=== PATIENT | female | born 2000 | race Caucasian/White ===

== ENCOUNTER → 2019-11-01 17:21 | Outpatient (BNVA) | payer BC, SELFPAY | PROVIDERS: Family Provider Nurse Practitioner Family; PCP Nurse Practitioner Family; Visit Provider Nurse Practitioner Family | DX: E03.9 Hypothyroidism, unspecified (principal); F41.9 Anxiety disorder, unspecified; F32.9 Major depressive disorder, single episode, unspecified | CPT/HCPCS: 80053; 84443; 85025 ==

== ENCOUNTER → 2019-12-30 15:05 | Outpatient (BNVA) | payer BC, SELFPAY | PROVIDERS: Family Provider Nurse Practitioner Family; PCP Nurse Practitioner Family; Visit Provider Nurse Practitioner Family | DX: Z30.09 Encounter for other general counseling and advice on contraception (principal); L30.9 Dermatitis, unspecified; N91.2 Amenorrhea, unspecified | CPT/HCPCS: 81025 ==

== ENCOUNTER → 2020-07-25 11:55 | Outpatient (BNVA) | payer BC, SELFPAY | PROVIDERS: Family Provider Nurse Practitioner Family; PCP Nurse Practitioner Family; Visit Provider Nurse Practitioner Family | DX: E03.9 Hypothyroidism, unspecified (principal); F32.9 Major depressive disorder, single episode, unspecified; F41.9 Anxiety disorder, unspecified; Z68.23 Body mass index [BMI] 23.0-23.9, adult; Z77.22 Contact with and (suspected) exposure to environmental tobacco smoke (acute) (chronic) | CPT/HCPCS: 80053; 84443; 85025 ==

== ENCOUNTER → 2021-03-07 15:33 | Outpatient (BNVA) | payer BC, SELFPAY | PROVIDERS: Family Provider Nurse Practitioner Family; PCP Nurse Practitioner Family; Visit Provider Nurse Practitioner Family | DX: R53.83 Other fatigue (principal); E03.9 Hypothyroidism, unspecified; R04.0 Epistaxis; F41.9 Anxiety disorder, unspecified; F32.9 Major depressive disorder, single episode, unspecified; Z77.22 Contact with and (suspected) exposure to environmental tobacco smoke (acute) (chronic) | CPT/HCPCS: 80053; 81025; 82306; 82607; 84439; 84443; 85025 ==

== ENCOUNTER → 2021-05-29 12:02 | Outpatient (BNVA) | payer BC, SELFPAY | PROVIDERS: Family Provider Nurse Practitioner Family; PCP Nurse Practitioner Family; Visit Provider Nurse Practitioner Family | DX: E55.9 Vitamin D deficiency, unspecified (principal); U07.1 COVID-19; F41.9 Anxiety disorder, unspecified; F32.9 Major depressive disorder, single episode, unspecified | CPT/HCPCS: 82306 ==

== ENCOUNTER → 2022-02-25 17:26 | Outpatient (BNVA) | payer BC, SELFPAY | PROVIDERS: Family Provider Nurse Practitioner Family; PCP Nurse Practitioner Family; Visit Provider Family Medicine | DX: E03.9 Hypothyroidism, unspecified (principal); E55.9 Vitamin D deficiency, unspecified; F32.9 Major depressive disorder, single episode, unspecified; F41.9 Anxiety disorder, unspecified | CPT/HCPCS: 80053; 80061; 82306; 84443; 85025 ==

== ENCOUNTER → 2022-04-25 12:14 | Outpatient (BNVA) | payer BC, SELFPAY | PROVIDERS: Family Provider Nurse Practitioner Family; PCP Nurse Practitioner Family; Visit Provider Nurse Practitioner Family | DX: M25.50 Pain in unspecified joint (principal); R04.0 Epistaxis | CPT/HCPCS: 80053; 81241; 84155; 84165; 85025; 85210; 85230; 85240; 85246; 85260 ==

== ENCOUNTER → 2022-11-06 09:39 | Outpatient (BNVA) | payer BC, SELFPAY | PROVIDERS: Family Provider Nurse Practitioner Family; PCP Nurse Practitioner Family; Visit Provider Nurse Practitioner Women's Health | DX: N92.6 Irregular menstruation, unspecified (principal); Z12.4 Encounter for screening for malignant neoplasm of cervix | CPT/HCPCS: 82306; 83036; 84146; 84402; 84702; 88175 ==

== ENCOUNTER → 2022-12-31 10:38 | Outpatient (BNVA) | payer BC, SELFPAY | PROVIDERS: Family Provider Nurse Practitioner Family; PCP Nurse Practitioner Family; Visit Provider Nurse Practitioner Women's Health | DX: E03.9 Hypothyroidism, unspecified (principal); E55.9 Vitamin D deficiency, unspecified; N92.6 Irregular menstruation, unspecified; Z11.3 Encounter for screening for infections with a predominantly sexual mode of transmission | CPT/HCPCS: 82306; 84443 ==

== ENCOUNTER → 2023-01-08 12:07 | Outpatient (BNVA) | payer BC, SELFPAY | PROVIDERS: Family Provider Nurse Practitioner Family; PCP Nurse Practitioner Family; Visit Provider Nurse Practitioner Women's Health | DX: N97.9 Female infertility, unspecified (principal); N83.201 Unspecified ovarian cyst, right side; N85.8 Other specified noninflammatory disorders of uterus | CPT/HCPCS: 76830 ==

== ENCOUNTER → 2023-09-15 08:02 | Outpatient (BNVA) | payer BC, SELFPAY | PROVIDERS: Family Provider Nurse Practitioner Family; PCP Nurse Practitioner Family; Visit Provider Nurse Practitioner Women's Health | DX: N92.6 Irregular menstruation, unspecified (principal) | CPT/HCPCS: 81025; 84702; 86850; 86900 ==

== ENCOUNTER → 2023-09-30 10:11 | Outpatient (BNVA) | payer BC, SELFPAY | PROVIDERS: Family Provider Nurse Practitioner Family; PCP Nurse Practitioner Family; Visit Provider Nurse Practitioner Women's Health | DX: Z34.80 Encounter for supervision of other normal pregnancy, unspecified trimester (principal) | CPT/HCPCS: 76801 ==

== ENCOUNTER → 2023-10-14 09:48 | Outpatient (BNVA) | payer BC, SELFPAY | PROVIDERS: Family Provider Nurse Practitioner Family; PCP Nurse Practitioner Family; Visit Provider Nurse Practitioner Women's Health | DX: Z34.90 Encounter for supervision of normal pregnancy, unspecified, unspecified trimester (principal); Z3A.10 10 weeks gestation of pregnancy; E03.9 Hypothyroidism, unspecified | CPT/HCPCS: 80307; 84315; 84439; 84443; 84481; 85025; 86592; 86762; 86803; 86850; 86900; 87086; 87340; 87491; 87591; 87806 ==

== ENCOUNTER → 2023-11-25 07:58 | Outpatient (BNVA) | payer BC, SELFPAY | PROVIDERS: Family Provider Nurse Practitioner Family; PCP Nurse Practitioner Family; Visit Provider Nurse Practitioner Women's Health | DX: Z34.90 Encounter for supervision of normal pregnancy, unspecified, unspecified trimester (principal); Z3A.00 Weeks of gestation of pregnancy not specified | CPT/HCPCS: 82105; 84315 ==

== ENCOUNTER → 2023-12-22 09:10 | Outpatient (BNVA) | payer BC, SELFPAY | PROVIDERS: Family Provider Nurse Practitioner Family; PCP Nurse Practitioner Family; Visit Provider Obstetrics & Gynecology | DX: Z34.92 Encounter for supervision of normal pregnancy, unspecified, second trimester (principal); Z3A.20 20 weeks gestation of pregnancy | CPT/HCPCS: 76805 ==

== ENCOUNTER → 2024-01-19 13:33 | Outpatient (BNVA) | payer BC, SELFPAY | PROVIDERS: Family Provider Nurse Practitioner Family; PCP Nurse Practitioner Family; Visit Provider Nurse Practitioner Women's Health | DX: Z34.90 Encounter for supervision of normal pregnancy, unspecified, unspecified trimester (principal); Z3A.10 10 weeks gestation of pregnancy | CPT/HCPCS: 84315; 84443; 85025 ==

== ENCOUNTER → 2024-02-16 13:06 | Outpatient (BNVA) | payer BC, SELFPAY | PROVIDERS: Family Provider Nurse Practitioner Family; PCP Nurse Practitioner Family; Visit Provider Obstetrics & Gynecology | DX: Z34.90 Encounter for supervision of normal pregnancy, unspecified, unspecified trimester (principal); Z3A.10 10 weeks gestation of pregnancy | CPT/HCPCS: 82950; 84315 ==

== ENCOUNTER → 2024-02-26 16:49 | Outpatient (BNVA) | payer BC, SELFPAY | PROVIDERS: Family Provider Nurse Practitioner Family; PCP Nurse Practitioner Family; Visit Provider Obstetrics & Gynecology | DX: Z3A.10 10 weeks gestation of pregnancy (principal) | CPT/HCPCS: 82951; 82952 ==

== ENCOUNTER → 2024-03-02 08:39 | Outpatient (BNVA) | payer BC, SELFPAY | PROVIDERS: Family Provider Nurse Practitioner Family; PCP Nurse Practitioner Family; Visit Provider Obstetrics & Gynecology | DX: Z34.90 Encounter for supervision of normal pregnancy, unspecified, unspecified trimester (principal); Z3A.30 30 weeks gestation of pregnancy | CPT/HCPCS: 76816; 84315 ==

== ENCOUNTER → 2024-03-18 09:45 | Outpatient (BNVA) | payer SELFPAY | PROVIDERS: Family Provider Nurse Practitioner Family; PCP Nurse Practitioner Family; Visit Provider Nurse Practitioner Women's Health | DX: Z34.00 Encounter for supervision of normal first pregnancy, unspecified trimester (principal); Z3A.10 10 weeks gestation of pregnancy; Z34.90 Encounter for supervision of normal pregnancy, unspecified, unspecified trimester | CPT/HCPCS: 82950; 84315; 84443; 85025 ==

== ENCOUNTER 2024-03-22 09:27 | Outpatient (CLI) | payer SELFPAY ==
[2024-03-22 09:36] VITALS: BP 113/67; PULSE 90
[2024-03-22 10:07] VITALS: BMI 26.8
--- NOTE | 2024-03-22 10:10 | PC.NURSE ---
THIS RN PROVIDED EDUCATED PATIENT ON IMPORTANCE OFF DRINKING PLENTY OF FLUIDS TO MAINTAIN HYDRATION.
[2024-03-22 10:20] VITALS: BP 113/67; PULSE 90; O2SAT 100
== END 2024-03-22 10:21 | disposition home or self-care (01) ==
LOC: OPOB 09:28 → OBGYN 09:30
PROVIDERS: Family Provider Nurse Practitioner Family; PCP Nurse Practitioner Family; Visit Provider Obstetrics & Gynecology
DX: O24.419 Gestational diabetes mellitus in pregnancy, unspecified control (principal); Z3A.00 Weeks of gestation of pregnancy not specified
CPT/HCPCS: 59025; 81000; 83986; 99211

== ENCOUNTER 2024-03-25 10:31 | Outpatient (CLI) | payer SELFPAY ==
[2024-03-25 10:33] VITALS: BP 129/70; PULSE 74
[2024-03-25 10:37] VITALS: RESP 18; TEMP 36.6; BMI 26.5
[2024-03-25 10:48] VITALS: BP 110/61; PULSE 72
== END 2024-03-25 11:05 | disposition home or self-care (01) ==
LOC: OPOB 10:32 → OBGYN 10:32
PROVIDERS: Family Provider Nurse Practitioner Family; PCP Nurse Practitioner Family; Visit Provider Obstetrics & Gynecology
DX: O24.419 Gestational diabetes mellitus in pregnancy, unspecified control (principal); Z3A.00 Weeks of gestation of pregnancy not specified
CPT/HCPCS: 59025; 99211

== ENCOUNTER 2024-03-29 09:35 | Outpatient (CLI) | payer SELFPAY ==
[2024-03-29 09:41] VITALS: BP 110/69; PULSE 90
[2024-03-29 09:48] VITALS: BMI 26.6
[2024-03-29 09:56] VITALS: BP 116/72; PULSE 81
[2024-03-29 10:11] VITALS: BP 115/73; PULSE 81
== END 2024-03-29 10:15 ==
LOC: OPOB 09:37 → OBGYN 09:37
PROVIDERS: Family Provider Nurse Practitioner Family; PCP Nurse Practitioner Family; Visit Provider Obstetrics & Gynecology
DX: O24.419 Gestational diabetes mellitus in pregnancy, unspecified control (principal); Z3A.00 Weeks of gestation of pregnancy not specified
CPT/HCPCS: 59025

== ENCOUNTER 2024-03-31 09:05 | Outpatient (CLI) | payer SELFPAY ==
[2024-03-31 09:05] VITALS: BMI 27.5
[2024-03-31 09:10] VITALS: BP 120/67; PULSE 69
[2024-03-31 09:26] VITALS: BP 120/73; PULSE 68
== END 2024-03-31 09:42 | disposition home or self-care (01) ==
LOC: OPOB 09:05 → OBGYN 09:06
PROVIDERS: Family Provider Nurse Practitioner Family; PCP Nurse Practitioner Family; Visit Provider Obstetrics & Gynecology
DX: O24.419 Gestational diabetes mellitus in pregnancy, unspecified control (principal); Z3A.00 Weeks of gestation of pregnancy not specified
CPT/HCPCS: 59025; 84315

== ENCOUNTER 2024-04-05 10:00 | Outpatient (CLI) | payer SELFPAY ==
[2024-04-05 10:04] VITALS: BP 127/65; PULSE 99
[2024-04-05 10:15] VITALS: RESP 18; BMI 28.5
[2024-04-05 10:18] VITALS: BP 125/70; PULSE 84
== END 2024-04-05 10:26 | disposition home or self-care (01) ==
LOC: OPOB 10:00 → OBGYN 10:01
PROVIDERS: Family Provider Nurse Practitioner Family; PCP Nurse Practitioner Family; Visit Provider Obstetrics & Gynecology
DX: O24.419 Gestational diabetes mellitus in pregnancy, unspecified control (principal); Z3A.00 Weeks of gestation of pregnancy not specified
CPT/HCPCS: 59025

== ENCOUNTER 2024-04-07 09:37 | Outpatient (CLI) | payer SELFPAY ==
[2024-04-07 09:45] VITALS: BMI 27.8
[2024-04-07 09:50] VITALS: BP 109/66; PULSE 90; TEMP 36.3
[2024-04-07 10:10] VITALS: BP 107/71; PULSE 82
== END 2024-04-07 10:25 ==
LOC: OPOB 09:38 → OBGYN 09:39
PROVIDERS: Family Provider Nurse Practitioner Family; PCP Nurse Practitioner Family; Visit Provider Obstetrics & Gynecology
DX: O24.419 Gestational diabetes mellitus in pregnancy, unspecified control (principal); Z3A.00 Weeks of gestation of pregnancy not specified
CPT/HCPCS: 59025

== ENCOUNTER 2024-04-12 09:16 | Outpatient (CLI) | payer SELFPAY ==
[2024-04-12 09:15] VITALS: BMI 28.5
[2024-04-12 09:25] VITALS: BP 116/77; PULSE 90
[2024-04-12 09:45] VITALS: BP 119/72; PULSE 76
== END 2024-04-12 09:50 | disposition home or self-care (01) ==
LOC: OPOB 09:16 → OBGYN 09:17
PROVIDERS: Family Provider Nurse Practitioner Family; PCP Nurse Practitioner Family; Visit Provider Obstetrics & Gynecology
DX: O24.419 Gestational diabetes mellitus in pregnancy, unspecified control (principal); Z3A.00 Weeks of gestation of pregnancy not specified
CPT/HCPCS: 59025

== ENCOUNTER 2024-04-14 09:10 | Outpatient (CLI) | payer SELFPAY ==
[2024-04-14 09:18] VITALS: BP 116/68; PULSE 75
[2024-04-14 09:30] VITALS: BMI 28.6
[2024-04-14 09:33] VITALS: BP 120/69; PULSE 83
== END 2024-04-14 09:45 | disposition home or self-care (01) ==
LOC: OPOB 09:14 → OBGYN 09:14
PROVIDERS: Family Provider Nurse Practitioner Family; PCP Nurse Practitioner Family; Visit Provider Obstetrics & Gynecology
DX: O24.419 Gestational diabetes mellitus in pregnancy, unspecified control (principal); Z3A.00 Weeks of gestation of pregnancy not specified
CPT/HCPCS: 59025; 76816; 81000; 87081; 99211

== ENCOUNTER 2024-04-20 11:30 | Outpatient (CLI) | payer OTHER, SELFPAY ==
[2024-04-20 11:35] VITALS: BP 122/76; PULSE 73
[2024-04-20 11:41] VITALS: BMI 27.9
== END 2024-04-20 12:00 | disposition home or self-care (01) ==
LOC: OPOB 11:30 → OBGYN 11:31
PROVIDERS: Family Provider Nurse Practitioner Family; PCP Nurse Practitioner Family; Visit Provider Obstetrics & Gynecology
DX: O24.419 Gestational diabetes mellitus in pregnancy, unspecified control (principal); Z3A.00 Weeks of gestation of pregnancy not specified
CPT/HCPCS: 59025; 81000

== ENCOUNTER 2024-04-22 13:33 | Outpatient (CLI) | payer OTHER, SELFPAY ==
[2024-04-22 13:44] VITALS: BP 116/75; PULSE 83
[2024-04-22 13:48] VITALS: BMI 27.4
== END 2024-04-22 14:06 ==
LOC: OPOB 13:33 → OBGYN 13:38
PROVIDERS: Family Provider Nurse Practitioner Family; PCP Nurse Practitioner Family; Visit Provider Obstetrics & Gynecology
DX: O26.899 Other specified pregnancy related conditions, unspecified trimester (principal); Z3A.00 Weeks of gestation of pregnancy not specified
CPT/HCPCS: 59025; 99211

== ENCOUNTER 2024-04-26 08:41 | Outpatient (CLI) | payer OTHER, SELFPAY ==
[2024-04-26 08:45] VITALS: BP 122/73; PULSE 113
[2024-04-26 08:47] VITALS: BMI 27.6
[2024-04-26 09:00] VITALS: BP 116/74; PULSE 77
== END 2024-04-26 09:15 ==
LOC: OPOB 08:41 → OBGYN 08:42
PROVIDERS: Family Provider Nurse Practitioner Family; PCP Nurse Practitioner Family; Visit Provider Obstetrics & Gynecology
DX: O24.419 Gestational diabetes mellitus in pregnancy, unspecified control (principal); Z3A.00 Weeks of gestation of pregnancy not specified
CPT/HCPCS: 59025; 84315

== ENCOUNTER 2024-04-29 10:16 | Outpatient (CLI) | payer OTHER, SELFPAY ==
[2024-04-29] VITALS (10 sets, daily range): BP systolic 107–141; BP diastolic 68–91; PULSE 56–86; BMI 28.1
[2024-04-29 12:38] LABS: Bilirubin Urine Negative (Negative); Blood Urine Negative (Negative); Glucose Urine UA Negative (Normal); Ketones Urine Negative (Negative); Leukocyte Esterase Urine Trace (Negative); Nitrate Urine Negative (Negative); Protein Urine Negative (Negative); Specific Gravity, Urine 1.003 (1.005-1.030); Urine Appearance Clear (CLEAR); Urine Color Yellow (Yellow); pH Urine 7.5 (5-7)
[2024-04-29 12:43] LABS: Bacteria Urine None Seen /hpf; Hyaline Casts Urine 0-4 /lpf; RBC Urine 0-2 /hpf (0-2); Squamous Epithelial Cell Urine 0-5 /hpf (0-5); WBC Urine 0-5 /hpf (0-5)
[2024-04-29 13:04] LABS: Add Urine Culture? No
== END 2024-04-29 13:10 | disposition home or self-care (01) ==
LOC: OPOB 10:16 → OBGYN 10:17
PROVIDERS: Family Provider Nurse Practitioner Family; PCP Nurse Practitioner Family; Visit Provider Obstetrics & Gynecology
DX: O24.419 Gestational diabetes mellitus in pregnancy, unspecified control (principal); Z3A.00 Weeks of gestation of pregnancy not specified
CPT/HCPCS: 59025; 81001; 99211

== ENCOUNTER 2024-05-04 08:58 | Outpatient (CLI) | payer OTHER, SELFPAY ==
[2024-05-04 08:57] VITALS: BMI 27.8
[2024-05-04 09:06] VITALS: BP 112/76; PULSE 86
[2024-05-04 09:21] VITALS: BP 114/76; PULSE 90
[2024-05-04 09:30] VITALS: BP 114/76; PULSE 90; O2SAT 98
== END 2024-05-04 09:30 | disposition home or self-care (01) ==
LOC: OPOB 08:58 → OBGYN 08:59
PROVIDERS: Family Provider Nurse Practitioner Family; PCP Nurse Practitioner Family; Visit Provider Obstetrics & Gynecology
DX: O24.419 Gestational diabetes mellitus in pregnancy, unspecified control (principal); Z3A.00 Weeks of gestation of pregnancy not specified
CPT/HCPCS: 59025; 84315; 99211

== ENCOUNTER 2024-05-06 09:00 | Outpatient (CLI) | payer OTHER, SELFPAY ==
[2024-05-06 09:06] VITALS: RESP 18; BMI 27.5
[2024-05-06 09:08] VITALS: BP 133/85; PULSE 100
[2024-05-06 09:23] VITALS: BP 122/75; PULSE 98
[2024-05-06 09:38] VITALS: BP 104/57; PULSE 73
[2024-05-06 09:46] VITALS: RESP 18
== END 2024-05-06 09:50 ==
LOC: OPOB 09:03 → OBGYN 09:04
PROVIDERS: Family Provider Nurse Practitioner Family; PCP Nurse Practitioner Family; Visit Provider Obstetrics & Gynecology
DX: O24.419 Gestational diabetes mellitus in pregnancy, unspecified control (principal); Z3A.00 Weeks of gestation of pregnancy not specified
CPT/HCPCS: 59025

== ENCOUNTER → 2024-05-10 09:54 | Outpatient (BNVA) | payer OTHER, SELFPAY | PROVIDERS: Family Provider Nurse Practitioner Family; PCP Nurse Practitioner Family; Visit Provider Obstetrics & Gynecology | DX: O24.410 Gestational diabetes mellitus in pregnancy, diet controlled (principal); Z3A.40 40 weeks gestation of pregnancy | CPT/HCPCS: 76819 ==

== ENCOUNTER 2024-05-10 12:32 | Outpatient (CLI) | payer OTHER, SELFPAY ==
[2024-05-10 12:32] VITALS: BMI 27.8
[2024-05-10 12:46] VITALS: BP 121/83; PULSE 84; TEMP 36.1
== END 2024-05-10 14:40 | disposition home or self-care (01) ==
LOC: OPOB 12:34 → OBGYN 12:35
PROVIDERS: Family Provider Nurse Practitioner Family; PCP Nurse Practitioner Family; Visit Provider Obstetrics & Gynecology
DX: O26.859 Spotting complicating pregnancy, unspecified trimester (principal); Z3A.00 Weeks of gestation of pregnancy not specified
CPT/HCPCS: 59025; 84315; 99211

== ENCOUNTER 2024-05-11 00:37 | Inpatient (IN) | payer OTHER, SELFPAY ==
[2024-05-11] VITALS (76 sets, daily range): BP systolic 104–162; BP diastolic 57–98; PULSE 60–102; RESP 16; TEMP 36.6; O2SAT 97–100; BMI 27.4
[2024-05-11] MEDS: sodium chloride 0.9% 1,000 ML 999 ML IV (00:43)
[2024-05-11 00:45] LABS: Basophils % 0.1 %; Eosinophils % 0.1 %; Lymphocytes # 1.3 10^3/uL (0.8-4.8); Lymphocytes % 9.5 %; Mean Corpuscular HGB Conc 31.7 g/dL (30-55); Mean Corpuscular Hemoglobin 25.4 pg (27-33); Mean Corpuscular Volume 80.2 fl (85-98); Mean Platelet Volume 10.5 fL (7.4-10.4); Monocytes # 0.7 10^3/uL (0.2-0.9); Monocytes % 5.2 %; Neutrophils # 11.46 10^3/uL (1.8-7.7); Neutrophils % 84.7 %; Nucleated Red Blood Cells % 0 %; Platelet Count 236 10^3/cmm (157-399); Red Blood Count 4.49 10^6/uL (3.85-5.65); Red Cell Distribution Width 13.8 % (12.1-15.1); White Blood Count 13.53 10^3/uL (3.29-11.43)
--- NOTE | 2024-05-11 01:29 | P.ANESASSM_ITS ---
Pre-Anesthetic Assessment Height/Weight: Height 1.65 m Weight 74.843 kg Pulse BP O2 Del Method 75 126/81 Room Air 05/11/24 01:15 05/11/24 01:15 05/11/24 00:01 Epidural Familial anesthetic complications: None Was Beta Fina taken within 24 hours: N/A Was Clonidine taken within 24 hours: N/A Social No alcohol and No tobacco Exam alert, oriented x 3, clear to auscultation bilaterally and regular rate & rhythm Airway Submandibular: within normal limits Cervical ROM: within normal limits Mallampati: Class II Dentition: chipped History/ROS No significant history except as noted and No significant complaints Pulmonary Asthma, Exertional Dyspnea and Upper Respiratory Infection (One week ago) CV/HEM None reported None reported Hepatic None reported GI None reported Metabolic Thyroid Disease [facility] [place] None reported Neuropsych Anxiety and Depression Anesthetic Plan ASA status: 2 Anesthesia: Anesthesia Evaluation, General and Regional (specify below) (Epidural) Medications/Allergies Home Medications Medication Instructions Recorded Confirmed Last Taken Type docosahexaenoic acid 200 mg 200 mg PO DAILY 09/15/23 05/10/24 05/10/24 History capsule ( DHA) buspirone 5 mg tablet See Rx Instructions .Route 02/02/24 05/10/24 05/10/24 Rx .COMPLEX #60 tabs blood-glucose meter (Blood Glucose #1 ea 03/19/24 05/10/24 Unknown Rx Monitoring kit) levothyroxine 100 mcg tablet 100 mcg PO DAILY #30 tabs 03/19/24 05/10/24 05/10/24 Rx Allergies Allergy/AdvReac Type Severity Reaction Status Date / Time No Known Allergies Allergy Verified 05/10/24 07:48 Current Medications Generic Name Dose Route Start Last Admin Trade Name Freq PRN Reason Stop Dose Admin Sodium Chloride 1,000 mls @ 999 mls/hr 05/11/24 00:21 05/11/24 00:43 Sodium Chloride 0.9% IV 999 mls/hr .Q1H1M PRN Administration See label comments PFSH Anesthesia Medical History (Updated 05/10/24 @ 08:27 by Monalisa Samuels LPN) Asthma No pertinent past medical history neghx: htn,dm,dvt/pe PCP: Dr. Laura [facility] Vitamin deficiency Hypothyroid followed by her PCP- reporting last level was normal in August 2022; no med dose change Anxiety and depression Diagnosed as a teen; she was managed with buspar and zoloft, but stopped medication to attempt September 2022. Surgical History No pertinent past surgical history Family History Mother Breast cancer, Onset Age: 31 lumpectomy and radiation Stroke Hyperlipidemia Hypertension Cervical cancer, Onset Age: 19 found during ; ended up with hysterectomy shortly after giving Grandmother Stroke Hypertension Diabetes Denies family history of Colon cancer Ovarian cancer Heart disease Uterine cancer Social History Smoking and tobacco/nicotine status: former use of tobacco/nicotine Female Reproductive History : 1 Data Anesthesia 05/11/24 00:30 Short CBC 05/11/24 Range/Units 00:30 WBC 13.53 H (3.29-11.43) 10^3/uL Hgb 11.40 (11.27-16.99) g/dL Hct 36.0 (36-47) % MCV 80.2 L (85-98) fl Plt Count 236 (157-399) 10^3/cmm Neut % (Auto) 84.7 % Neut # (Auto) 11.46 H (1.8-7.7) 10^3/uL Blood Bank 05/11/24 00:30 Blood Type A Positive Rho(D) Type Rh positive Cardiac Studies: 2 No Data to Display
[2024-05-11] MEDS: dextrose 5%-sod chloride 0.45% 1,000 ML 125 ML IV (01:45)
--- NOTE | 2024-05-11 01:45 | PM.OBGYHP ---
Providers/Chief Complaint Admitting Physician: Eliel Mayen MD Primary FIRE CREW SPECIALIST: Eliel Mayen MD Primary Care Provider: DANTE Esparza Chief Complaint: Ctx. 2-4 min HPI FIRE CREW SPECIALIST History of Present Illness Elisabet Mahmood is a 23 year old female G1 EDC May 08, 2024 At 40 w 3 d Patient presented to L&D c/o painful uterine contractions No bleeding, fluid leakage + movements Patient with gestational diabetes, well-controlled with diet Present Details : 1 Para: 0 Labs Rubella: Immune RPR: Negative GBS: Negative Medications/Allergies Home Medications Medication Instructions Recorded Confirmed Last Taken Type docosahexaenoic acid 200 mg 200 mg PO DAILY 09/15/23 05/10/24 05/10/24 History capsule ( DHA) buspirone 5 mg tablet See Rx Instructions .Route 02/02/24 05/10/24 05/10/24 Rx .COMPLEX #60 tabs blood-glucose meter (Blood Glucose #1 ea 03/19/24 05/10/24 Unknown Rx Monitoring kit) levothyroxine 100 mcg tablet 100 mcg PO DAILY #30 tabs 03/19/24 05/10/24 05/10/24 Rx Allergies Allergy/AdvReac Type Severity Reaction Status Date / Time No Known Allergies Allergy Verified 05/10/24 07:48 [facility] FIRE CREW SPECIALIST PFSH: Medical History (Updated 05/12/24 @ 17:43 by Eliel Mayen MD) Asthma No pertinent past medical history neghx: htn,dm,dvt/pe PCP: Dr. Laura Winter [facility] Vitamin deficiency Hypothyroid followed by her PCP- reporting last level was normal in August 2022; no med dose change Anxiety and depression Diagnosed as a teen; she was managed with buspar and zoloft, but stopped medication to attempt September 2022. Surgical History No pertinent past surgical history Family History Mother Breast cancer, Onset Age: 31 lumpectomy and radiation Stroke Hyperlipidemia Hypertension Cervical cancer, Onset Age: 19 found during ; ended up with hysterectomy shortly after giving Grandmother Stroke Hypertension Diabetes Denies family history of Colon cancer Ovarian cancer Heart disease Uterine cancer Social History Smoking and tobacco/nicotine status: former use of tobacco/nicotine History History History 1 Term 0 Miscarriages/Ectopic Living Children Care MANJU Calculator Estimated Delivery Date Method Current WG Current Estimate 05/08/24 Ultrasound #1 40w 4d Specific Issues/Plans ASTHMA: has albulterol 90 mcg/actuation rescue inhaler on hand HYPTHYROIDISM: TSH on 10/13 3.04, 01/19/24 2.20, 03/18/24 4.75 increased dosage to 100 mcg synthroid daily ANXIETY AND DEPRESSION: taking buspirone daily, doing well on this GESTATIONAL DIABETES: diet controlled, checking sugars 4x daily, NSTs twice weekly Vitals/I&O/Wt Last Vital Signs Temp 97.6 F 05/12/24 16:32 Pulse 67 05/12/24 16:32 Resp 15 05/12/24 16:32 BP 121/76 05/12/24 16:32 Pulse Ox 98 05/12/24 04:30 O2 Del Method Room Air 05/12/24 11:17 Weight last 48 hrs Weight 165 lb Physical Exam Narrative: Weight 165 lbs; 5?4? VS normal General awake, alert Lungs: clear Cor: RRR Abd: FH 37 cm Cervix: 4-5 cm / 90 / -2 / cephalic Ext: no edema External monitor: regular UCs heart tracing good variability, + accelerations Urinary Catheter Management: Ochoa: Cath Placed During This Visit: yes, but has since been removed by the nurse Reason for Continuing Indwelling Catheter: Decision to DC Catheter Urinary Catheter Date of Insertion: 05/11/24 Urinary Catheter Time of Insertion: 02:30 Date Urinary Catheter Removed: 05/11/24 Time Urinary Catheter Discontinued: 06:50 Data 05/11/24 19:35 Results Labs OB ([facility]): Obstetrics US 04/14/24 Obstetrics US/Biophysical Profile 05/10/24 Blood Type A Positive 05/11/24 Antibody Screen Negative 05/11/24 Hct 28.2 % (36-47) L 05/11/24 Hgb 8.90 g/dL (11.27-16.99) L 05/11/24 Rho(D) Type Rh positive 05/11/24 Plt Count 202 10^3/cmm (157-399) 05/11/24 Hep Bs Antigen Non-reactive (Nonreactive) 10/14/23 Hepatitis C Antibody Non-reactive (Nonreactive) 10/14/23 Rubella IgG Antibody > 500.0 IU/mL (0.0-10.0) H 10/14/23 RPR Nonreactive (Nonreactive) 10/14/23 HIV 1&2 Ab & HIV 1 Ag Non-reactive (Non-Reactiv) 10/14/23 TSH 4.75 uIU/mL (0.27-4.20) H 03/18/24 Free T4 1.18 ng/dL (0.82-1.77) 10/14/23 C.trachomatis RNA (TMA) Not detected (NOT DETECTED) 10/14/23 N.gonorrhoeae RNA (TMA) Not detected (NOT DETECTED) 10/14/23 T. vaginalis Amp RNA Not detected (NOT DETECTED) 10/14/23 Chlamydia/GC Comment See note 10/14/23 Glucose Tolerance mg/dL 02/26/24 Glucose 1 Hr 50 gm 214 mg/dL (85-140) H 02/16/24 Gest Glucose Tolerance 172 mg/dL (70-139) H 03/18/24 Hemoglobin A1c 5.1 % (4.0-6.0) 11/06/22 Ser , Semi-Qnt 00726.00 mIU/mL 09/15/23 HCG, Qual Positive (Negative) H 09/15/23 Urine Opiates Screen Negative ng/mL (Negative) 10/14/23 Ur Barbiturates Screen Negative ng/mL (Negative) 10/14/23 Ur Phencyclidine Scrn Negative ng/mL (Negative) 10/14/23 Ur Amphetamines Screen Negative ng/mL (Negative) 10/14/23 U Benzodiazepines Scrn Negative ng/mL (Negative) 10/14/23 Urine Cocaine Screen Negative ng/mL (Negative) 10/14/23 U Marijuana (THC) Screen Negative ng/mL (Negative) 10/14/23 Micro Urine Specimen 10/14/23 Pap Smear Interpret See note 11/06/22 Free Testosterone 1.9 pg/mL (0.2-5.0) 11/06/22 Prolactin 16.52 ng/mL (4.8-23.3) 11/06/22 A&P Assessment and plan (1) Active labor: 40 w 3 d Patient with active labor Fetus reassuring Plan expectant management Attestations Medical Necessity Statement*: patient at 40 w 3 d, with active labor Coding Level of Care Code Acute Code for Chg Fwd Diagnoses Active labor Time Spent (min) 30
[2024-05-11] MEDS: ROPivacaine syringe 100 MG/50 ML SYRINGE 10 MG EPIDURAL ×2 (01:57→04:07)
--- NOTE | 2024-05-11 02:05 | ANES.PROC ---
Anesthesia Procedures Procedure/Date: 05/11/24 Epidural: Time Out Performed: Yes Consents Signed: Procedure Consent and NPO Consent Consent: requested by attending/covering physician, from patient, risks and benefits reviewed and patient agrees to proceed Lumbar Level: L3-L4 Epidural position: sitting Epidural procedure: sterile prep of area (betadine), 1% lidocaine to numb the area (3 mLs), neg for paresthesia, test dose given, 1.5% xylocaine 1:200k epi (3 mLs/ 2 mLs), placed PCEA, no systemic response, sterile dressing applied, L.U.D. no apparent complications and 0.2% Ropiavacaine @ mls/hr (12) Additional Comments: LANIE 4cm, catheter threaded to 10cm. No heme or CSF aspirated. Patient tolerated well.
--- NOTE | 2024-05-11 04:20 | P.PN_ITS ---
SUPERVISOR FINE GRADING Subjective 2 Subjective: Interval history: Fetus reassuring Cervix: 7 cm / 90 / -1 Labor: Station: +2 Amniotic Membrane Status: Ruptured Monitor Mode: External Contraction Pattern: Regular Vitals/I&O/Wt Last Vital Signs Temp 97.6 F 05/12/24 16:32 Pulse 67 05/12/24 16:32 Resp 15 05/12/24 16:32 BP 121/76 05/12/24 16:32 Pulse Ox 98 05/12/24 04:30 O2 Del Method Room Air 05/12/24 11:17 Weight last 48 hrs Weight 165 lb Physical Exam 2 Urinary Catheter Management: Ochoa: Cath Placed During This Visit: yes, but has since been removed by the nurse Reason for Continuing Indwelling Catheter: Decision to DC Catheter Urinary Catheter Date of Insertion: 05/11/24 Urinary Catheter Time of Insertion: 02:30 Date Urinary Catheter Removed: 05/11/24 Time Urinary Catheter Discontinued: 06:50 Data 05/11/24 19:35 A&P Assessment and plan (1) Active labor: Attestations 2 Medical Necessity Statement*: patient at 40 w 3 d, with active labor Coding Level of Care Code Acute Code for Chg Fwd Diagnoses Active labor Time Spent (min) 30
[2024-05-11] MEDS: ROPivacaine syringe 100 MG/50 ML SYRINGE 12 MG EPIDURAL (06:17)
[2024-05-11] MEDS: oxytocin 30 UNIT/500 ML BAG 600 UNIT IV (07:10)
[2024-05-11] MEDS: lidocaine 2% INJ 20 mL INJECTION (07:23)
--- NOTE | 2024-05-11 07:25 | PM.DELIVERY ---
Delivery Note: Date of delivery: May 11, 2024 Pre-delivery diagnoses: 40 w 3 d gestational diabetes, diet-controlled active labor Post-delivery diagnoses: 40 w 3 d gestational diabetes, diet-controlled active labor vaginal delivery repair of third-degree perineal laceration Procedure: vaginal delivery repair of third-degree perineal laceration Op report anesthesia: Epidural Delivering Physician: Eliel Mayen MD Estimated blood loss (mL): 300 Findings: , vigorous male Cord gases and blood obtained Normal placenta and cord No episiotomy Third-degree perineal laceration repaired in layers EBL: 300 cc No complications Pre-Delivery Course: normal labor course Delivery: vaginal Post-Delivery Status: good History History History 1 Term 0 Miscarriages/Ectopic Living Children A&P Assessment and plan (1) Vaginal delivery: Coding Level of Care Code Acute Code for Chg Fwd Diagnoses Vaginal delivery O80 Time Spent (min) 60
[2024-05-11] MEDS: docusate sodium 100 mg Capsule PO ×2 (08:54→20:05)
[2024-05-11] MEDS: ibuprofen 800 mg tablet PO ×3 (08:54→20:04)
[2024-05-11] MEDS: PRENATAL VIT NO.130/IRON/FOLIC 1 EACH TABLET PO (08:54)
[2024-05-11] MEDS: benzocaine-menthol 78 gm Canister 1 SPRAY TOPICAL (13:10)
[2024-05-11] MEDS: lanolin oint 7 gm 1 APPLIC TOPICAL (13:11)
--- NOTE | 2024-05-11 14:00 | PC.NURSE ---
Pt up to bathroom with 2 RN assistance as left leg still very numb. Pt to toilet, voided large amount and luca care performed. Pt then assisted back to bed. Instructed not to get out of bed without assistance.
--- NOTE | 2024-05-11 17:18 | PC.NURSE ---
up to bathroom with minimal assistance. large void. luca care performed. gown and pad changed. pt moved via wheelchair to OB8 for post stay. oriented to room/call light and proud parent pack. educated on breast feeding every 2-3 hours.
[2024-05-11 19:48] LABS: Hematocrit 28.2 % (36-47); Mean Corpuscular HGB Conc 31.6 g/dL (30-55); Mean Corpuscular Hemoglobin 25.4 pg (27-33); Mean Corpuscular Volume 80.6 fl (85-98); Mean Platelet Volume 10.1 fL (7.4-10.4); Platelet Count 202 10^3/cmm (157-399); Red Cell Distribution Width 14.1 % (12.1-15.1); White Blood Count 13.32 10^3/uL (3.29-11.43)
[2024-05-12 04:30] VITALS: BP 112/75; PULSE 79; RESP 16; TEMP 36.6; TEMP 36.7; O2SAT 98
[2024-05-12] MEDS: acetaminophen 325 mg Tablet 650 MG PO (05:44)
--- NOTE | 2024-05-12 08:00 | ANE.PACU2 ---
Inpatient post-anesthesia follow up: Airway intact: Yes Vital signs: Temperature 97.6 F Pulse Rate 67 Respiratory Rate 15 Blood Pressure 121/76 Pulse Oximetry 98 Oxygen Delivery Me thod Room Air Oxygen Flow Rate Fraction of Inspir ed Oxygen Hydration adequate: Yes Nausea and vomiting: No Pain level: 1 Mental status: Baseline Epidural Start/End: Epidural Start Date: 05/11/24 Epidural Start Time: 01:35 Epidural End Date: 05/11/24 Epidural End Time: 10:16
[2024-05-12] MEDS: PRENATAL VIT NO.130/IRON/FOLIC 1 EACH TABLET PO (08:35)
[2024-05-12] MEDS: docusate sodium 100 mg Capsule PO (08:35)
[2024-05-12] MEDS: ibuprofen 800 mg tablet PO ×2 (08:35→15:02)
[2024-05-12 11:17] VITALS: BP 103/69; PULSE 83; RESP 15; TEMP 523.8; TEMP 523.9; TEMP 975
--- NOTE | 2024-05-12 14:10 | P.PN_ITS ---
SPECIALTY TRANSFORMER ASSEMBLER Subjective 2 Subjective: Interval history: no c/o no bleeding mild perineal pain, relieved with pain medication eating, voiding, ambulating well caring for without any problems Labor: Station: +2 Amniotic Membrane Status: Ruptured Monitor Mode: External Contraction Pattern: Regular Vitals/I&O/Wt Last Vital Signs Temp 97.6 F 05/12/24 16:32 Pulse 67 05/12/24 16:32 Resp 15 05/12/24 16:32 BP 121/76 05/12/24 16:32 Pulse Ox 98 05/12/24 04:30 O2 Del Method Room Air 05/12/24 11:17 Weight last 48 hrs Weight 165 lb Physical Exam 2 Narrative: afebrile, VS normal comfortable, awake, alert Abd: soft, nontender. fundus firm Ext: no edema; nontender Urinary Catheter Management: Ochoa: Cath Placed During This Visit: yes, but has since been removed by the nurse Reason for Continuing Indwelling Catheter: Decision to DC Catheter Urinary Catheter Date of Insertion: 05/11/24 Urinary Catheter Time of Insertion: 02:30 Date Urinary Catheter Removed: 05/11/24 Time Urinary Catheter Discontinued: 06:50 Data 05/11/24 19:35 A&P Assessment and plan (1) Vaginal delivery: PPD #1 , third-degree perineal laceration repaired doing well patient wants to go home discharge to home today instructions and precautions given call/return if fever, chills, headache, blurry vision, nausea, vomiting, abdominal pain; vaginal bleeding or discharge; shortness of breath, chest pain, leg pains or swelling; inability to void, perineal pain or swelling; feelings of depression or mood changes; thoughts of suicide or harming others; inability to care for baby. f/u in 1-2 weeks or PRN Attestations 2 Medical Necessity Statement*: patient s/p vaginal delivery, plan discharge to home today Coding Level of Care Code Acute Code for Chg Fwd Diagnoses Vaginal delivery O80 Time Spent (min) 20
--- NOTE | 2024-05-12 14:15 | P.DS_ITS ---
Discharge Providers LITIGATION CLAIM REPRESENTATIVE Date of Admission: 05/11/24 00:37 Date of Discharge: 05/12/24 Attending Provider at Admission: Eliel Mayen MD Attending Provider at Discharge: Eliel Mayen MD Consults: none Primary LITIGATION CLAIM REPRESENTATIVE: Eliel Mayen MD Primary Care Provider: DANTE Esparza Diagnoses at Discharge Discharge Diagnosis (1) Vaginal delivery: Details from hospital stay: 23 y.o. G1 at 40 w 3 d complicated by diet-controlled gestational diabetes presented to L&D c/o painful uterine contractions patient progressed to vaginal delivery with repair of third-degree perineal laceration without any complications patient did well and was discharged to home on the first day Status: Acute Reason for Visit Reason for Visit: Ctx. 2-4 min Brief History: 23 y.o. G1 at 40 w 3 d complicated by diet-controlled gestational diabetes presented to L&D c/o painful uterine contractions Hospital Course Hospital Course 23 y.o. G1 at 40 w 3 d complicated by diet-controlled gestational diabetes presented to L&D c/o painful uterine contractions patient progressed to vaginal delivery with repair of third-degree perineal laceration without any complications patient did well and was discharged to home on the first day Information Peripartum Data: Delivery Method: Vaginal Laceration description: Perineal - 3rd Degree Episiotomy description: None complications: none Physical Exam Narrative: afebrile, VS normal comfortable, awake, alert Abd: soft, nontender. fundus firm Ext: no edema; nontender Urinary Catheter Management: Ochoa: Cath Placed During This Visit: yes, but has since been removed by the nurse Reason for Continuing Indwelling Catheter: Decision to DC Catheter Urinary Catheter Date of Insertion: 05/11/24 Urinary Catheter Time of Insertion: 02:30 Date Urinary Catheter Removed: 05/11/24 Time Urinary Catheter Discontinued: 06:50 History History History 1 Term 0 Miscarriages/Ectopic Living Children Discharge Data Studies Completed and Pending Laboratory Results WBC 13.32 10^3/uL (3.29-11.43) H 05/11/24 19:35 RBC 3.50 10^6/uL (3.85-5.65) L 05/11/24 19:35 Hgb 8.90 g/dL (11.27-16.99) L 05/11/24 19:35 Hct 28.2 % (36-47) L 05/11/24 19:35 MCV 80.6 fl (85-98) L 05/11/24 19:35 MCH 25.4 pg (27-33) L 05/11/24 19:35 MCHC 31.6 g/dL (30-55) 05/11/24 19:35 RDW 14.1 % (12.1-15.1) 05/11/24 19:35 Plt Count 202 10^3/cmm (157-399) 05/11/24 19:35 MPV 10.1 fL (7.4-10.4) 05/11/24 19:35 Neut % (Auto) 84.7 % 05/11/24 00:30 Lymph % (Auto) 9.5 % 05/11/24 00:30 [place] % (Auto) 5.2 % 05/11/24 00:30 Eos % (Auto) 0.1 % 05/11/24 00:30 Baso % (Auto) 0.1 % 05/11/24 00:30 Neut # (Auto) 11.46 10^3/uL (1.8-7.7) H 05/11/24 00:30 Lymph # (Auto) 1.3 10^3/uL (0.8-4.8) 05/11/24 00:30 [place] # (Auto) 0.7 10^3/uL (0.2-0.9) 05/11/24 00:30 Eos # (Auto) 0.0 10^3/uL (0.0-0.8) 05/11/24 00:30 Baso # (Auto) 0.0 10^3/uL (0.0-0.1) 05/11/24 00:30 Nucleated RBC % (auto) 0 % 05/11/24 00:30 Nucleated RBCs # 0.0 /100WBC 05/11/24 00:30 Blood Type A Positive 05/11/24 00:30 Rho(D) Type Rh positive 05/11/24 00:30 Antibody Screen Negative 05/11/24 00:30 Procedures Performed vaginal delivery repair of third-degree perineal laceration Vitals Last Vital Signs Temp 97.6 F 05/12/24 16:32 Pulse 67 05/12/24 16:32 Resp 15 05/12/24 16:32 BP 121/76 05/12/24 16:32 Pulse Ox 98 05/12/24 04:30 O2 Del Method Room Air 05/12/24 11:17 Results Labs OB ([facility]): Obstetrics US 04/14/24 Obstetrics US/Biophysical Profile Blood Type A Positive 05/11/24 Antibody Screen Negative 05/11/24 Hct 28.2 % (36-47) L 05/11/24 Hgb 8.90 g/dL (11.27-16.99) L 05/11/24 Rho(D) Type Rh positive 05/11/24 Plt Count 202 10^3/cmm (157-399) 05/11/24 Hep Bs Antigen Non-reactive (Nonreactive) 10/14/23 Hepatitis C Antibody Non-reactive (Nonreactive) 10/14/23 Rubella IgG Antibody > 500.0 IU/mL (0.0-10.0) H 10/14/23 RPR Nonreactive (Nonreactive) 10/14/23 HIV 1&2 Ab & HIV 1 Ag Non-reactive (Non-Reactiv) 10/14/23 TSH 4.75 uIU/mL (0.27-4.20) H 03/18/24 Free T4 1.18 ng/dL (0.82-1.77) 10/14/23 C.trachomatis RNA (TMA) Not detected (NOT DETECTED) N.gonorrhoeae RNA (TMA) Not detected (NOT DETECTED) T. vaginalis Amp RNA Not detected (NOT DETECTED) 10/14/23 Chlamydia/GC Comment See note 10/14/23 Glucose Tolerance mg/dL 02/26/24 Glucose 1 Hr 50 gm 214 mg/dL (85-140) H 02/16/24 Gest Glucose Tolerance 172 mg/dL (70-139) H 03/18/24 Hemoglobin A1c 5.1 % (4.0-6.0) 11/06/22 Ser , Semi-Qnt 37650.00 mIU/mL 09/15/23 HCG, Qual Positive (Negative) H 09/15/23 Urine Opiates Screen Negative ng/mL (Negative) 10/14/23 Ur Barbiturates Screen Negative ng/mL (Negative) 10/14/23 Ur Phencyclidine Scrn Negative ng/mL (Negative) 10/14/23 Ur Amphetamines Screen Negative ng/mL (Negative) 10/14/23 U Benzodiazepines Scrn Negative ng/mL (Negative) 10/14/23 Urine Cocaine Screen Negative ng/mL (Negative) 10/14/23 U Marijuana (THC) Screen Negative ng/mL (Negative) 10/14/23 Micro Urine Specimen 10/14/23 Pap Smear Interpret See note 11/06/22 Free Testosterone 1.9 pg/mL (0.2-5.0) 11/06/22 Prolactin 16.52 ng/mL (4.8-23.3) 11/06/22 Discharge Plan Discharge Patient Disposition: Home Condition: Stable Prescriptions: Continued DHA 200 mg capsule 200 mg PO DAILY levothyroxine 100 mcg tablet 100 mcg PO DAILY Qty: 30 1RF buspirone 5 mg tablet See Rx Instructions .ROUTE .COMPLEX Qty: 60 0RF Dose Instruction: Take 1 tablet by mouth twice daily Rx Instructions: Take 1 tablet by mouth twice daily No Action (DME) blood-glucose meter [Blood Glucose Monitoring] Kit See Rx Instructions .MEDSUPPLY Qty: 1 0RF Rx Instructions: please include test strips, lancets, and alcohol wipes Discharge Orders: Discharge Order (Routine); Ordered 05/12/24 Ordered By: Eliel Mayen Discharge Diet: Regular Discharge Activity: Increase activity as tolerated Patient Instructions: Perineal Care (DC), Iron Rich Diet (DC), Bleeding (DC), Perineal Tear with Delivery (GEN), Vaginal Delivery (DC), Hemorrhage (DC), OB Food/Drug Interaction Guide, OB Care at Home, Opioid Safety, OB Proud Parent Packet Activity Restrictions/Additional Instructions: Please call [facility] on 05/13/2024 for a 1-2 week follow up from discharge date per Dr. Mayen. Plan of Treatment: followup with clinic 1-2 weeks Discharge Attestations LITIGATION CLAIM REPRESENTATIVE Time Spent in Discharge Care*: less than 30 min Coding Level of Care Code Acute Code for Chg Fwd Diagnoses Vaginal delivery O80 Time Spent (min) 20
[2024-05-12 16:32] VITALS: BP 121/76; PULSE 67; RESP 15; TEMP 36.4
== END 2024-05-12 17:50 | disposition home or self-care (01) | DRG 768 ==
LOC: OPOB 00:38 → OBGYN 00:38
PROVIDERS: Admitting Provider Obstetrics & Gynecology; Family Provider Nurse Practitioner Family; PCP Nurse Practitioner Family; Visit Provider Obstetrics & Gynecology
DX: O48.0 Post-term pregnancy (principal); Z37.0 Single live birth; O70.20 Third degree perineal laceration during delivery, unspecified; Z3A.40 40 weeks gestation of pregnancy; O24.420 Gestational diabetes mellitus in childbirth, diet controlled; O99.344 Other mental disorders complicating childbirth; O75.9 Complication of labor and delivery, unspecified; J45.909 Unspecified asthma, uncomplicated; F41.9 Anxiety disorder, unspecified; F32.A Depression, unspecified; Z87.891 Personal history of nicotine dependence; Z83.3 Family history of diabetes mellitus; Z80.3 Family history of malignant neoplasm of breast; Z80.49 Family history of malignant neoplasm of other genital organs; Z82.3 Family history of stroke; Z82.49 Family history of ischemic heart disease and other diseases of the circulatory system
CPT/HCPCS: 36415; 51702; 59025; 59409; 85025; 85027; 86850; 86900; 98960; 99211; J2590; J2795; J7030; J7799